=== PATIENT | male | born 1945 | race Caucasian/White ===

== ENCOUNTER 2019-01-21 13:43 | Inpatient (IN) | payer OTHER, MEDICARE ==
[2019-01-21] MEDS ORDERED: ACETAMINOPHEN 1000 MG/100 ML VIAL (NON FORMULARY) IVPB ONE (14:59)
[2019-01-21] MEDS ORDERED: SODIUM CHLORIDE 0.9% 1000 ML INFUS.BAG IV ONE (15:00)
--- NOTE | 2019-01-21 15:09 | PDOC ---
History of Present Illness - General Chief Complaint: Urinary Problem Stated Complaint: BACK PAIN Time Seen by Provider: 01/21/19 14:32 History Source: Patient Exam Limitations: No Limitations - History of Present Illness Initial Comments: 01/21/19 15:03 73M with a PMH of recent greenlight surgery on 01/17/19, HTN, DM, HLD, who presents to the ER with nausea and L flank pain. The patient states that since yesterday, he has had worsening nausea associated with the antibiotic that he was prescribed (Bactrim DS). He has not been able to hold any food down today but denies any current nausea. He states that he has been "dribbling" since his procedure. He denies fever, chills, dysuria, hematuria but admits to lower abdominal pain and abdominal distension. Last bowel movement was 2 days ago. No hx of abdominal surgery. Past History - Past Medical History Allergies/Adverse Reactions: Allergies Allergy/AdvReac Type Severity Reaction Status Date / Time Penicillins Allergy Verified 01/21/19 13:55 Home Medications: Ambulatory Orders Amlodipine Besylate 2.5 mg PO DAILY 01/21/19 Aspirin 81 mg PO DAILY 01/21/19 Lisinopril/Hydrochlorothiazide [Lisinopril-Hctz 20-12.5 mg Tab] 1 each PO DAILY 01/21/19 Metformin HCl [Glucophage] 500 mg PO BID 01/21/19 Phenazopyridine HCl [Pyridium] 100 mg PO DAILY 01/21/19 Rosuvastatin [Crestor -] 5 mg PO HS 01/21/19 Sulfamethoxazole/Trimethoprim [Bactrim Ds -] 1 tab PO BID 01/21/19 COPD: No Diabetes: Yes HTN: Yes Hypercholesterolemia: Yes - Suicide/Smoking/Psychosocial Hx Smoking History: Former smoker Have you smoked in the past 12 months: No Information on smoking cessation initiated: No Hx Alcohol Use: No Drug/Substance Use Hx: No Review of Systems - Review of Systems Able to Perform ROS?: Yes Comments:: 01/21/19 15:05 GENERAL/CONSTITUTIONAL: No fever or chills. No weakness. HEAD, EYES, EARS, NOSE AND THROAT: No change in vision. No ear pain or discharge. No sore throat. CARDIOVASCULAR: No chest pain, palpitations, or lightheadedness. RESPIRATORY: No cough, wheezing, shortness of breath, or hemoptysis. GASTROINTESTINAL: + for abdominal pain and distention. No abdominal pain, nausea , vomiting, diarrhea, or constipation. GENITOURINARY: + for frequency and L CVA pain. No dysuria, hematuria, or change in urination. MUSCULOSKELETAL: No joint or muscle swelling or pain. No neck or back pain. SKIN: No rash or lesions. NEUROLOGIC: No headache, numbness, tingling, focal weakness, loss of consciousness, or change in strength/sensation. Is the patient limited Finnish proficient: No *Physical Exam - Vital Signs Last Vital Signs Temp Pulse Resp BP Pulse Ox 99.2 F 100 H 20 144/76 94 L 01/21/19 13:58 01/21/19 13:58 01/21/19 13:58 01/21/19 13:58 01/21/19 13:58 - Physical Exam Comments: 01/21/19 15:06 GENERAL: Well developed, well nourished. Awake and alert. No acute distress. HEENT: Normocephalic, atraumatic. Hearing grossly normal. Moist mucous membranes. PERRLA, EOMI. No conjunctival pallor. Sclera are non-icteric. NECK: Supple. Full ROM. No JVD. CARDIOVASCULAR: Regular rate and rhythm. No murmurs, rubs, or gallops. PULMONARY: No evidence of respiratory distress. Lungs clear to auscultation bilaterally. No wheezing, rales or rhonchi. ABDOMINAL: Soft. Nontender but distended. No rebound or guarding. GENITOURINARY: L CVA tenderness. MUSCULOSKELETAL: Normal range of motion at all joints. No bony deformities or tenderness. EXTREMITIES: No cyanosis. No clubbing. No edema. No calf tenderness or swelling. SKIN: Warm and dry. Normal capillary refill. No rashes. No jaundice. NEUROLOGICAL: Alert, awake, appropriate. Cranial nerves 2-12 intact. Normal speech. Gait is normal without ataxia. PSYCHIATRIC: Cooperative. Good eye contact. Appropriate mood and affect. ED Treatment Course - LABORATORY CBC & Chemistry Diagram: 01/21/19 15:22 01/21/19 15:22 - RADIOLOGY Radiology Studies Ordered: Category Date Time Status ABDOMEN & PELVIS CT W/O CONTR [CT] Stat CT Scan 01/21/19 14:59 Ordered Medical Decision Making - Medical Decision Making 01/21/19 15:10 73M with a recent greenlight procedure who presents with nausea and distention concerning for urinary retention vs UTI vs pyelo. Will obtain labs, US, and UA. Pending labs and imaging. Pt noted to be mildly tachycardic. Will treat pain and give fluids. Case d/w Dr. Spears who recommends a bladder US to evaluate for urinary retention. He also recommends switch abx to cefuroxime if the patient cannot tolerate bactrim. 01/21/19 15:36 UA shows trace LE with 1.2 bacteria, unclear if definite UTI, especially with a lack of dysuria. However, due to urgency and L flank pain, still concern for pyelo. 01/21/19 17:24 US shows L hydro with post void residual of 750 (prevoid 950). Dr. Adair aware and agrees with archibald placement. Will give ceftriaxone for abx coverage. Pt does not remember his allergic reaction to PCNs, will monitor closely. 01/21/19 18:20 I have endorsed the patient to Dr. Cabrera for admission. *DC/Admit/Observation/Transfer Diagnosis at time of Disposition: BARBIE (acute kidney injury) - Discharge Dispostion Condition at time of disposition: Guarded Decision to Admit order: Yes - Referrals Referrals: Juany Dietz MD [Primary Care Provider] - - Patient Instructions - Post Discharge Activity
[2019-01-21 15:10] LABS: EPI CELLS 0.9 /HPF (0-5/HPF); HYALINE CASTS 1 /lpf (0-8); URINE APPEARANCE CLEAR; URINE BACTERIA 1.2 /hpf (NEGATIVE); URINE BILIRUBIN NEGATIVE (NEGATIVE); URINE COLOR DK YELLOW; URINE GLUCOSE (UA) NEGATIVE (NEGATIVE); URINE KETONE NEGATIVE (NEGATIVE); URINE LEUK ESTERASE TRACE (NEGATIVE); URINE NITRITE NEGATIVE (NEGATIVE); URINE PROTEIN TRACE (NEGATIVE); URINE UROBILINOGEN 0.2 mg/dL (0.2-1.0); URINE WBC 5 /hpf (0-5)
[2019-01-21] MEDS ORDERED: ACETAMINOPHEN INJECTION 100 ML IVPB ONE (15:13)
[2019-01-21 15:46] LABS: URINE RBC 177.4 /hpf (0-4)
[2019-01-21 15:54] LABS: BASO % 0.3 % (0-2.0); EOS % 0.3 % (0-4.5); HEMATOCRIT 45.5 % (35.4-49); HEMOGLOBIN 15.4 GM/dL (11.7-16.9); LYMPH % 3.9 % (8-40); MCH 28.5 pg (25.7-33.7); MCHC 33.8 g/dl (32.0-35.9); MEAN CELL VOLUME 84.2 fl (80-96); MEAN PLT VOLUME 7.2 fl (7.5-11.1); MONO % 12.4 % (3.8-10.2); NEUT % 83.1 % (42.8-82.8); PLATELET COUNT 236 K/MM3 (134-434); RDW 13.5 % (11.9-15.9); WHITE BLOOD COUNT 13.2 K/mm3 (4.0-10.0)
[2019-01-21 16:25] LABS: ALBUMIN 3.7 g/dl (3.4-5.0); BILIRUBIN,TOTAL 0.6 mg/dL (0.2-1); BLOOD UREA NITROGEN 37.7 mg/dL (7-18); CALCIUM 9.6 mg/dL (8.5-10.1); CREATININE 3.2 mg/dL (0.55-1.3); POTASSIUM 4.3 mmol/L (3.5-5.1); TOT PROT 7.2 g/dl (6.4-8.2)
[2019-01-21 16:29] LABS: INR 1.11 (0.83-1.09); PROTHROMBIN TIME (PATIENT) 13.1 SEC (9.7-13.0)
[2019-01-21] MEDS ORDERED: CEFTRIAXONE 1,000 MG in DEXTROSE 5%-WATER - 50 ML IVPB ONE (17:24)
[2019-01-21] MEDS ORDERED: CEFTRIAXONE 1 GM/50 ML BAG ONE (17:56)
[2019-01-21] MEDS ORDERED: AZTREONAM 1 GM VIAL (RESTRICTED TO ID) IVPB ONE (18:11)
[2019-01-21] MEDS ORDERED: LIDOCAINE HCL 2% JELLY 10 ML CARTRIDGE ONE (18:14)
[2019-01-21] MEDS ORDERED: AZTREONAM 1 GM VIAL (RESTRICTED TO ID) ONE (18:29)
[2019-01-22 03:50] VITALS: BMI 27.1
[2019-01-22 08:31] LABS: HEMATOCRIT 38.2 % (35.4-49); HEMOGLOBIN 13.3 GM/dL (11.7-16.9); MCH 28.9 pg (25.7-33.7); MCHC 34.8 g/dl (32.0-35.9); MEAN CELL VOLUME 82.9 fl (80-96); MEAN PLT VOLUME 6.8 fl (7.5-11.1); PLATELET COUNT 200 K/MM3 (134-434); RBC 4.61 M/mm3 (4.00-5.60); RDW 13.4 % (11.9-15.9); WHITE BLOOD COUNT 9.8 K/mm3 (4.0-10.0)
[2019-01-22 09:02] LABS: ALBUMIN 2.9 g/dl (3.4-5.0); BILIRUBIN,TOTAL 0.6 mg/dL (0.2-1); BLOOD UREA NITROGEN 22.6 mg/dL (7-18); CALCIUM 8.9 mg/dL (8.5-10.1); CREATININE 1.5 mg/dL (0.55-1.3); POTASSIUM 3.9 mmol/L (3.5-5.1); TOT PROT 6.1 g/dl (6.4-8.2)
[2019-01-22] MEDS: ASPIRIN 81 MG CHEWABLE TABLETS PO SCH (10:08)
[2019-01-22] MEDS: amLODIPine BESYLATE 2.5 MG TABLET (FP) PO SCH (10:08)
[2019-01-22] MEDS: SODIUM CHLORIDE 1,000 ML IV SCH (10:08)
--- NOTE | 2019-01-22 10:35 | EKG ---
Test Reason : Blood Pressure : / mmHG Vent. Rate : 088 BPM Atrial Rate : 088 BPM P-R Int : 210 ms QRS Dur : 092 ms QT Int : 374 ms P-R-T Axes : 051 -14 039 degrees QTc Int : 452 ms SINUS RHYTHM WITH 1ST DEGREE A-V BLOCK INFERIOR INFARCT , AGE UNDETERMINED ANTERIOR INFARCT , AGE UNDETERMINED ABNORMAL ECG NO PREVIOUS ECGS AVAILABLE Confirmed by YINKA SMITH MD ([id number]) on 01/22/2019 10:35:17 AM Referred By: Confirmed By:YINKA SMITH MD
[2019-01-22] MEDS: INSULIN SLIDING SCALE (NOVOLOG) 1 VIAL SQ SCH ×3 (12:29→21:42)
[2019-01-22] MEDS ORDERED: DOCUSATE SODIUM 100 MG CAPSULE (FP) PO PRN (14:04)
[2019-01-22] MEDS ORDERED: ACETAMINOPHEN 325 MG TABLET (FP) PO PRN (14:04)
--- NOTE | 2019-01-22 14:04 | HP ---
Admitting History and Physical - Primary Care Physician PCP: Kasi Cabrera - Admission Chief Complaint: Vomiting, Difficulty urinating History of Present Illness: Pt with Hx/o BPH, s/p greelight prostate procedure on last Tuesday, developed heamturia and UR, had Chavez cath placed and removed before the weekend; he was started on Bactrim and Pyridium. Over the weekend pt developed nausea, vomiting , chills, difficulty with urination. Yesterday he came to ER, found to have UR, UTI; pt had Chavez placed and was started on IV abtx. History Source: Patient - Past Medical History Cardiovascular: Yes: HTN, Hyperlipdemia Endocrine: Yes: Diabetes Mellitus - Past Surgical History Additional Past Surgical History: right ankle Sx with hardware palcement - Smoking History Smoking history: Former smoker Have you smoked in the past 12 months: No - Alcohol/Substance Use Hx Alcohol Use: No Home Medications - Allergies Allergies/Adverse Reactions: Allergies Allergy/AdvReac Type Severity Reaction Status Date / Time Penicillins Allergy Verified 01/21/19 13:55 - Home Medications Home Medications: Ambulatory Orders Amlodipine Besylate 2.5 mg PO DAILY 01/21/19 Aspirin 81 mg PO DAILY 01/21/19 Lisinopril/Hydrochlorothiazide [Lisinopril-Hctz 20-12.5 mg Tab] 1 each PO DAILY 01/21/19 Metformin HCl [Glucophage] 500 mg PO ACBK 01/21/19 Phenazopyridine HCl [Pyridium] 100 mg PO TID 01/21/19 Rosuvastatin [Crestor -] 5 mg PO HS 01/21/19 Sulfamethoxazole/Trimethoprim [Bactrim Ds -] 1 tab PO BID 01/21/19 Ubidecarenone [Co Q-10] 100 mg PO DAILY 01/22/19 Review of Systems - Review of Systems Constitutional: denies: Chills, Fever Eyes: denies: Blurred Vision, Double Vision HENT: reports: Ear Discharge, Nasal Congestion. denies: Throat Pain Neck: denies: Pain on Movement, Stiffness Cardiovascular: denies: Chest Pain, Edema Respiratory: denies: Cough, SOB Gastrointestinal: reports: Bloating, Constipation (for 4 days) Genitourinary: denies: Burning, Dysuria Musculoskeletal: denies: Back Pain, Muscle Pain Integumentary: denies: Bruising, Eczema Neurological: denies: Change in LOC, Change in Speech, Numbness Endocrine: denies: Excessive Sweating, Intolerance to Cold Hematology/Lymphatic: denies: Easily Bruised, Excessive Bleeding Psychiatric: denies: Anxiety, Depression Physical Examination Vital Signs: Vital Signs Temperature 98.4 F 01/22/19 06:00 Pulse Rate 87 01/22/19 06:00 Respiratory Rate 20 01/22/19 06:00 Blood Pressure 136/63 01/22/19 06:00 O2 Sat by Pulse Oximetry (%) 98 01/21/19 20:04 Constitutional: Yes: No Distress, Calm Eyes: Yes: Conjunctiva Clear, EOM Intact HENT: No: Epistaxis, Rhinnorhea Neck: Yes: Trachea Midline. No: Lymphadenopathy Cardiovascular: Yes: Regular Rate and Rhythm, S1, S2 Respiratory: Yes: Regular, CTA Bilaterally. No: Rales Gastrointestinal: Yes: Normal Bowel Sounds, Soft, Distention. No: Palpable Mass , Tenderness, Tenderness, Rebound ...Rectal Exam: Yes: Deferred Edema: No Neurological: Yes: Alert, Oriented Psychiatric: Yes: Alert, Oriented Labs: CBC, BMP 01/22/19 08:12 01/22/19 08:12 Imaging - Results Ultrasound: Report Reviewed Problem List - Problems (1) Urinary retention Code(s): R33.9 - RETENTION OF URINE, UNSPECIFIED (2) BPH (benign prostatic hyperplasia) Code(s): N40.0 - BENIGN PROSTATIC HYPERPLASIA WITHOUT LOWER URINRY TRACT SYMP (3) Constipation Assessment/Plan: Trial of Prune Juice, Colace and Senna; consider enema Code(s): K59.00 - CONSTIPATION, UNSPECIFIED (4) Diabetes mellitus Code(s): E11.9 - TYPE 2 DIABETES MELLITUS WITHOUT COMPLICATIONS (5) HTN (hypertension) Code(s): I10 - ESSENTIAL (PRIMARY) HYPERTENSION (6) HLD (hyperlipidemia) Code(s): E78.5 - HYPERLIPIDEMIA, UNSPECIFIED (7) BARBIE (acute kidney injury) Code(s): N17.9 - ACUTE KIDNEY FAILURE, UNSPECIFIED Assessment/Plan Chavez catheter IFV consult; pt's conditon was d/w Dr. Barbour ID consult in a pt with PCN allergy AM labs Pt's condition was d/w his nurse
--- NOTE | 2019-01-22 15:57 | CON.GU ---
Consult Consult Specialty:: Referred by:: ti Reason for Consultation:: urinary retention - History of Present Illness Chief Complaint: urinary retention History of Present Illness: 73 year old male 5 days S/P Greenlight laser. He was admitted to the hospital with urinary retention and increased creatinine. Archibald was placed. both have resolved. - History Source History Provided By: Patient, Medical Record - Past Medical History Renal/: Yes: BPH - Alcohol/Substance Use Hx Alcohol Use: No - Smoking History Smoking history: Former smoker Have you smoked in the past 12 months: No Home Medications - Allergies Allergies/Adverse Reactions: Allergies Allergy/AdvReac Type Severity Reaction Status Date / Time Penicillins Allergy Verified 01/21/19 13:55 - Home Medications Home Medications: Ambulatory Orders Amlodipine Besylate 2.5 mg PO DAILY 01/21/19 Aspirin 81 mg PO DAILY 01/21/19 Lisinopril/Hydrochlorothiazide [Lisinopril-Hctz 20-12.5 mg Tab] 1 each PO DAILY 01/21/19 Metformin HCl [Glucophage] 500 mg PO ACBK 01/21/19 Phenazopyridine HCl [Pyridium] 100 mg PO TID 01/21/19 Rosuvastatin [Crestor -] 5 mg PO HS 01/21/19 Sulfamethoxazole/Trimethoprim [Bactrim Ds -] 1 tab PO BID 01/21/19 Ubidecarenone [Co Q-10] 100 mg PO DAILY 01/22/19 Review of Systems - Review of Systems Gastrointestinal: reports: Bloating, Constipation Genitourinary: reports: Hematuria Physical Exam- Vital Signs: Vital Signs Temperature 98.4 F 01/22/19 06:00 Pulse Rate 87 01/22/19 06:00 Respiratory Rate 20 01/22/19 06:00 Blood Pressure 136/63 01/22/19 06:00 O2 Sat by Pulse Oximetry (%) 98 01/21/19 20:04 Gastrointestinal: Yes: Distention Renal/: Yes: Archibald Present. No: Bladder Distention, CVA Tenderness - Left, CVA Tenderness - Right, Hematuria Labs: CBC, BMP 01/22/19 08:12 01/22/19 08:12 Problem List - Problems (1) Urinary retention due to benign prostatic hyperplasia Assessment/Plan: creatinine and wbc are improved, ok to discharge on abx and with archibald/ follow up with Dr. Son this week Code(s): N40.1 - BENIGN PROSTATIC HYPERPLASIA WITH LOWER URINARY TRACT SYMP; R33.8 - OTHER RETENTION OF URINE
--- NOTE | 2019-01-22 16:29 | CON.ID ---
Consult Consult Specialty:: infectious disease Referred by:: dr luke Reason for Consultation:: possible uti - History of Present Illness Chief Complaint: urine dribbling History of Present Illness: 73 yo man s/p MRI fusion Biopsy 2 1/2 weeks ago was given bactrim to take for four days without incident , then underwent greenlight surgery last Tuesday- post surgery he had clotting and returned on to have archibald changed, he then went back tuesday and had the archibald removed he was given bactrim and pyridium to take - which he took until the day of admission- nausea and vomiting no fevers +abdominal distention no BM for 2 days in the ED archibald was placed for PVR of 750 cc renal/bladder sono with bilateral hydronephrosis with urinary retention he was noted to have elevated bun/cr he has voided over 4 liters now that he has a archibald no vomiting today ate 2 meals unknown penicillin allergy - History Source History Provided By: Patient, Family Member Limitations to Obtaining History: No Limitations - Past Medical History Cardio/Vascular: Yes: HTN, Hyperlipdemia Renal/: Yes: BPH 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) Endocrine: Yes: Diabetes Mellitus - Alcohol/Substance Use Hx Alcohol Use: No History of Substance Use: reports: None - Smoking History Smoking history: Former smoker Have you smoked in the past 12 months: No - Social History ADL: Independent Occupation: retired Place of : [facility] History of Recent Travel: No Home Medications - Allergies Allergies/Adverse Reactions: Allergies Allergy/AdvReac Type Severity Reaction Status Date / Time Penicillins Allergy Verified 01/21/19 13:55 - Home Medications Home Medications: Ambulatory Orders Amlodipine Besylate 2.5 mg PO DAILY 01/21/19 Aspirin 81 mg PO DAILY 01/21/19 Lisinopril/Hydrochlorothiazide [Lisinopril-Hctz 20-12.5 mg Tab] 1 each PO DAILY 01/21/19 Metformin HCl [Glucophage] 500 mg PO ACBK 01/21/19 Phenazopyridine HCl [Pyridium] 100 mg PO TID 01/21/19 Rosuvastatin [Crestor -] 5 mg PO HS 01/21/19 Sulfamethoxazole/Trimethoprim [Bactrim Ds -] 1 tab PO BID 01/21/19 Ubidecarenone [Co Q-10] 100 mg PO DAILY 01/22/19 Review of Systems - Review of Systems Constitutional: reports: No Symptoms Eyes: reports: No Symptoms HENT: reports: No Symptoms Neck: reports: No Symptoms Cardiovascular: reports: No Symptoms Respiratory: reports: No Symptoms. denies: Cough Gastrointestinal: reports: Bloating, Constipation. denies: Vomiting Genitourinary: reports: No Symptoms Physical Exam Vital Signs: Vital Signs Temperature 98.4 F 01/22/19 06:00 Pulse Rate 87 01/22/19 06:00 Respiratory Rate 20 01/22/19 06:00 Blood Pressure 136/63 01/22/19 06:00 O2 Sat by Pulse Oximetry (%) 98 01/21/19 20:04 Constitutional: Yes: Well Nourished, No Distress, Calm Eyes: Yes: Conjunctiva Clear HENT: Yes: Atraumatic, Normocephalic Neck: Yes: Supple Cardiovascular: Yes: Regular Rate and Rhythm Respiratory: Yes: Regular, CTA Bilaterally Gastrointestinal: Yes: Normal Bowel Sounds, Soft, Abdomen, Obese, Other ( distended, soft) ...Rectal Exam: Yes: Deferred Renal/: Yes: Archibald Present (clear urine) Extremities: Yes: WNL Edema: No Psychiatric: Yes: Alert, Oriented Labs: CBC, BMP 01/22/19 08:12 01/22/19 08:12 Microbiology 01/21/19 14:48 Urine - Urine Clean Catch Urine Culture - Final NO GROWTH OBTAINED Imaging - Results Ultrasound: Report Reviewed (bilateral hydronephrosis with urinary retention) Problem List - Problems (1) Urinary retention due to benign prostatic hyperplasia Code(s): N40.1 - BENIGN PROSTATIC HYPERPLASIA WITH LOWER URINARY TRACT SYMP; R33.8 - OTHER RETENTION OF URINE (2) BARBIE (acute kidney injury) Code(s): N17.9 - ACUTE KIDNEY FAILURE, UNSPECIFIED (3) Abdominal distention Code(s): R14.0 - ABDOMINAL DISTENSION (GASEOUS) (4) Penicillin allergy Code(s): Z88.0 - ALLERGY STATUS TO PENICILLIN Assessment/Plan urine culture is negative he has no fever will d/c antibioitcs xray abdomen for distention-most likely due to constipation pen allergy- noted-unspecified by patient d/w urology Dr Easley
[2019-01-22] MEDS ORDERED: MAG HYDROX/AL HYDROX/SIMETH 30 ML UNIT-DOSE CUP PO PRN (20:37)
[2019-01-22] MEDS: ROSUVASTATIN CA 5 MG TABLET (FP) PO SCH (21:42)
[2019-01-22] MEDS ORDERED: SENNOSIDES 8.6MG TABLET (FP) PO PRN (22:00)
[2019-01-22] MEDS ORDERED: SODIUM PHOSPHATE/NA BIPHOS 133 ML ENEMA RC ONE (22:15)
[2019-01-23] MEDS: INSULIN SLIDING SCALE (NOVOLOG) 1 VIAL SQ SCH ×4 (06:23→22:47)
[2019-01-23 08:28] LABS: HEMATOCRIT 39.7 % (35.4-49); HEMOGLOBIN 13.4 GM/dL (11.7-16.9); MCH 28.4 pg (25.7-33.7); MCHC 33.7 g/dl (32.0-35.9); MEAN CELL VOLUME 84.4 fl (80-96); MEAN PLT VOLUME 6.7 fl (7.5-11.1); RDW 13.1 % (11.9-15.9); WHITE BLOOD COUNT 8.5 K/mm3 (4.0-10.0)
[2019-01-23 08:43] LABS: ALBUMIN 2.9 g/dl (3.4-5.0); BILIRUBIN,TOTAL 0.6 mg/dL (0.2-1); BLOOD UREA NITROGEN 17.7 mg/dL (7-18); CALCIUM 8.8 mg/dL (8.5-10.1); CREATININE 1.1 mg/dL (0.55-1.3); POTASSIUM 3.7 mmol/L (3.5-5.1); TOT PROT 6.2 g/dl (6.4-8.2)
[2019-01-23 09:02] LABS: PLATELET COUNT 231 K/MM3 (134-434)
--- NOTE | 2019-01-23 09:28 | PN ---
Progress Note, Physician History of Present Illness: Pt had small BM last might (after Colace, Senna, fleet enema). Pt's abdomen feels better but still distended when is compare to baseline; pt w/ o nausea, vomiting. Pt w/o fever, chills, CP, palpitations, legs edema. Pt w/o Hx/o abdominal Sx, abdominal foreign body, abdominal stent - Current Medication List Current Medications: Active Medications Acetaminophen (Tylenol -) 650 mg PO Q6H PRN PRN Reason: PAIN 1-3 Last Admin: 01/22/19 17:47 Dose: 650 mg Al Hydroxide/Mg Hydroxide (Mylanta Oral Suspension -) 30 ml PO Q6H PRN PRN Reason: INDIGESTION Last Admin: 01/22/19 20:47 Dose: 30 ml Amlodipine Besylate (Norvasc -) 2.5 mg PO DAILY [facility] Last Admin: 01/22/19 10:08 Dose: 2.5 mg Aspirin (Asa -) 81 mg PO DAILY [facility] Last Admin: 01/22/19 10:08 Dose: Not Given Docusate Sodium (Colace -) 100 mg PO BID PRN PRN Reason: CONSTIPATION Last Admin: 01/22/19 17:47 Dose: 100 mg Sodium Chloride (Normal Saline -) 1,000 mls @ 75 mls/hr IV ASDIR [facility] Last Admin: 01/22/19 10:08 Dose: 75 mls/hr Insulin Aspart (Novolog Vial Sliding Scale -) 1 vial SQ ACHS [facility]; Protocol Last Admin: 01/23/19 06:23 Dose: Not Given Rosuvastatin Calcium (Crestor -) 5 mg PO HS [facility] Last Admin: 01/22/19 21:42 Dose: 5 mg Senna (Senna -) 2 tab PO HS PRN PRN Reason: CONSTIPATION Last Admin: 01/22/19 23:58 Dose: 2 tab - Objective Vital Signs: Vital Signs Temperature 99.1 F 01/23/19 06:30 Pulse Rate 90 01/23/19 06:30 Respiratory Rate 20 01/23/19 06:30 Blood Pressure 137/82 01/23/19 06:30 O2 Sat by Pulse Oximetry (%) 93 L 01/22/19 09:00 Constitutional: Yes: No Distress, Calm Cardiovascular: Yes: Regular Rate and Rhythm, S1, S2 Respiratory: Yes: Regular, CTA Bilaterally. No: Rales Gastrointestinal: Yes: Normal Bowel Sounds, Soft, Distention. No: Tenderness, Tenderness, Rebound Edema: No Neurological: Yes: Alert, Oriented Labs: CBC, BMP 01/23/19 07:21 01/23/19 07:21 INR, PTT INR 1.11 (0.83-1.09) H 01/21/19 15:22 - ....Imaging X-ray: Report Reviewed Problem List - Problems (1) Urinary retention Code(s): R33.9 - RETENTION OF URINE, UNSPECIFIED (2) BPH (benign prostatic hyperplasia) Code(s): N40.0 - BENIGN PROSTATIC HYPERPLASIA WITHOUT LOWER URINRY TRACT SYMP (3) Constipation Code(s): K59.00 - CONSTIPATION, UNSPECIFIED (4) Diabetes mellitus Code(s): E11.9 - TYPE 2 DIABETES MELLITUS WITHOUT COMPLICATIONS (5) HTN (hypertension) Code(s): I10 - ESSENTIAL (PRIMARY) HYPERTENSION (6) HLD (hyperlipidemia) Code(s): E78.5 - HYPERLIPIDEMIA, UNSPECIFIED (7) BARBIE (acute kidney injury) Code(s): N17.9 - ACUTE KIDNEY FAILURE, UNSPECIFIED Assessment/Plan Chavez catheter IFV consult and ID consult are appreciated. To f/u with ID and AM labs Pt's condition was d/w his nurse
[2019-01-23] MEDS: amLODIPine BESYLATE 2.5 MG TABLET (FP) PO SCH (11:06)
[2019-01-23] MEDS: ASPIRIN 81 MG CHEWABLE TABLETS PO SCH (11:07)
[2019-01-23] MEDS: SODIUM CHLORIDE 1,000 ML IV SCH (11:07)
[2019-01-23] MEDS: ROSUVASTATIN CA 5 MG TABLET (FP) PO SCH (22:48)
[2019-01-24] MEDS ORDERED: SODIUM CHLORIDE 1,000 ML IV SCH (00:40)
[2019-01-24] MEDS: INSULIN SLIDING SCALE (NOVOLOG) 1 VIAL SQ SCH ×4 (06:39→21:47)
[2019-01-24 08:26] LABS: HEMATOCRIT 37.5 % (35.4-49); HEMOGLOBIN 12.8 GM/dL (11.7-16.9); MCH 28.7 pg (25.7-33.7); MEAN CELL VOLUME 84.2 fl (80-96); MEAN PLT VOLUME 6.6 fl (7.5-11.1); PLATELET COUNT 258 K/MM3 (134-434); RBC 4.45 M/mm3 (4.00-5.60); WHITE BLOOD COUNT 8.5 K/mm3 (4.0-10.0)
[2019-01-24 08:45] LABS: BLOOD UREA NITROGEN 14.9 mg/dL (7-18); CALCIUM 8.3 mg/dL (8.5-10.1); CREATININE 0.9 mg/dL (0.55-1.3)
[2019-01-24] MEDS: ASPIRIN 81 MG CHEWABLE TABLETS PO SCH (10:12)
[2019-01-24] MEDS: amLODIPine BESYLATE 2.5 MG TABLET (FP) PO SCH (10:12)
[2019-01-24] MEDS: DOCUSATE SODIUM 100 MG CAPSULE (FP) PO SCH ×2 (10:12→21:48)
--- NOTE | 2019-01-24 14:04 | PN ---
Progress Note, Physician History of Present Illness: Pt is asking to have Chavez removed, refusing to go home if not seen by . Pt's abdomen feels better but still distended when is compare to baseline; pt w/ o nausea, vomiting; hre had BM yestarday. Pt w/o fever, chills, CP, palpitations, legs edema. Pt w/o Hx/o abdominal Sx, abdominal foreign body, abdominal stent - Current Medication List Current Medications: Active Medications Acetaminophen (Tylenol -) 650 mg PO Q6H PRN PRN Reason: PAIN 1-3 Last Admin: 01/22/19 17:47 Dose: 650 mg Al Hydroxide/Mg Hydroxide (Mylanta Oral Suspension -) 30 ml PO Q6H PRN PRN Reason: INDIGESTION Last Admin: 01/22/19 20:47 Dose: 30 ml Amlodipine Besylate (Norvasc -) 2.5 mg PO DAILY [facility] Last Admin: 01/24/19 10:12 Dose: 2.5 mg Aspirin (Asa -) 81 mg PO DAILY [facility] Last Admin: 01/24/19 10:12 Dose: 81 mg Docusate Sodium (Colace -) 100 mg PO BID [facility] Last Admin: 01/24/19 10:12 Dose: 100 mg Insulin Aspart (Novolog Vial Sliding Scale -) 1 vial SQ [facility]; Protocol Last Admin: 01/24/19 12:08 Dose: Not Given Rosuvastatin Calcium (Crestor -) 5 mg PO HS [facility] Last Admin: 01/23/19 22:48 Dose: 5 mg Senna (Senna -) 2 tab PO HS PRN PRN Reason: CONSTIPATION Last Admin: 01/22/19 23:58 Dose: 2 tab - Objective Vital Signs: Vital Signs Temperature 98.2 F 01/24/19 10:00 Pulse Rate 94 H 01/24/19 10:00 Respiratory Rate 18 01/24/19 10:00 Blood Pressure 158/71 01/24/19 10:00 O2 Sat by Pulse Oximetry (%) 99 01/23/19 21:00 Constitutional: Yes: No Distress, Calm Cardiovascular: Yes: Regular Rate and Rhythm, S1, S2 Respiratory: Yes: Regular, CTA Bilaterally. No: Rales Gastrointestinal: Yes: Normal Bowel Sounds, Soft. No: Tenderness Edema: No Neurological: Yes: Alert, Oriented Labs: CBC, BMP 01/24/19 07:05 01/24/19 07:05 INR, PTT INR 1.11 (0.83-1.09) H 01/21/19 15:22 Problem List - Problems (1) Urinary retention Code(s): R33.9 - RETENTION OF URINE, UNSPECIFIED (2) BPH (benign prostatic hyperplasia) Code(s): N40.0 - BENIGN PROSTATIC HYPERPLASIA WITHOUT LOWER URINRY TRACT SYMP (3) Constipation Code(s): K59.00 - CONSTIPATION, UNSPECIFIED (4) Diabetes mellitus Code(s): E11.9 - TYPE 2 DIABETES MELLITUS WITHOUT COMPLICATIONS (5) HTN (hypertension) Code(s): I10 - ESSENTIAL (PRIMARY) HYPERTENSION (6) HLD (hyperlipidemia) Code(s): E78.5 - HYPERLIPIDEMIA, UNSPECIFIED (7) BARBIE (acute kidney injury) Code(s): N17.9 - ACUTE KIDNEY FAILURE, UNSPECIFIED Assessment/Plan Chavez catheter To DC IFV consult and ID consult are appreciated. To f/u with DC planning. Pt's condition was d/w his nurse
--- NOTE | 2019-01-24 17:12 | PN ---
Progres Note Chief Complaint: urinary retention - Objective Vital Signs: Vital Signs Temperature 99.1 F 01/24/19 15:00 Pulse Rate 81 01/24/19 15:00 Respiratory Rate 18 01/24/19 15:00 Blood Pressure 149/75 01/24/19 15:00 O2 Sat by Pulse Oximetry (%) 99 01/23/19 21:00 Constitutional: Yes: Well Nourished Eyes: Yes: WNL HENT: Yes: WNL Neck: Yes: WNL Respiratory: Yes: Dullness Gastrointestinal: Yes: Soft Genitourinary: Yes: WNL Kidneys: Yes: WNL Labs/Additional Data: CBC, BMP 01/24/19 07:05 01/24/19 07:05 INR, PTT INR 1.11 (0.83-1.09) H 01/21/19 15:22 Imaging - Results Ultrasound: Report Reviewed Problem List - Problems (1) BPH (benign prostatic hyperplasia) Assessment/Plan: archibald to sd s/p AUR post BPH procedure for voiding trial in am Code(s): N40.0 - BENIGN PROSTATIC HYPERPLASIA WITHOUT LOWER URINRY TRACT SYMP
[2019-01-24] MEDS ORDERED: SODIUM PHOSPHATE/NA BIPHOS 133 ML ENEMA RC ONE (21:30)
[2019-01-24] MEDS: ROSUVASTATIN CA 5 MG TABLET (FP) PO SCH (21:48)
[2019-01-25 04:42] VITALS: PULSE 80
[2019-01-25 07:34] LABS: BLOOD UREA NITROGEN 13.1 mg/dL (7-18); CALCIUM 8.3 mg/dL (8.5-10.1); POTASSIUM 3.8 mmol/L (3.5-5.1)
[2019-01-25] MEDS: INSULIN SLIDING SCALE (NOVOLOG) 1 VIAL SQ SCH (07:58)
[2019-01-25] MEDS: ASPIRIN 81 MG CHEWABLE TABLETS PO SCH (10:05)
[2019-01-25] MEDS: DOCUSATE SODIUM 100 MG CAPSULE (FP) PO SCH (10:06)
[2019-01-25] MEDS: amLODIPine BESYLATE 2.5 MG TABLET (FP) PO SCH (10:06)
--- NOTE | 2019-01-25 11:00 | DS ---
Physical Examination Vital Signs: Vital Signs Temperature 99.8 F H 01/24/19 22:00 Pulse Rate 80 01/24/19 22:00 Respiratory Rate 18 01/24/19 22:00 Blood Pressure 142/68 01/24/19 22:00 O2 Sat by Pulse Oximetry (%) 99 01/23/19 21:00 Findings/Remarks: Pt had Chavez removed this AM; he voided twice, no blood in urine. Pt w/o abd distension, had BM twice yesterday. Pt w/o abd pain, back opain, SOB, cg, SOB Constitutional: Yes: No Distress, Calm Cardiovascular: Yes: Regular Rate and Rhythm, S1, S2 Respiratory: Yes: Regular, CTA Bilaterally. No: Rales Gastrointestinal: Yes: Normal Bowel Sounds, Soft. No: Tenderness Edema: No Neurological: Yes: Alert, Oriented Labs: CBC, BMP 01/24/19 07:05 01/25/19 05:20 Discharge Summary Reason For Visit: ACUTE KIDNEY INJURY Current Active Problems BARBIE (acute kidney injury) (Acute) Abdominal distention (Acute) BPH (benign prostatic hyperplasia) (Acute) Constipation (Acute) Diabetes mellitus (Acute) HLD (hyperlipidemia) (Acute) HTN (hypertension) (Acute) Penicillin allergy (Acute) Urinary retention (Acute) Urinary retention due to benign prostatic hyperplasia (Acute) Procedures: Principal: Renal/ Bladder US. Abd XR Hospital Course: Pt with recent greenlight prostate procedure, for BPH, came to ER c/o difficulty with urination, found to have UR, ARF. Pt had Chavez placed and was started on IVabtx, IVF. He was seen by (Dr Corea/ Adelaida), ID (Dr Mc; no abtx needed). Pt's reanl function improved; he was treated for constiparion. Pt had Chavez removed (this AM) and voided. To DC pt home with outpatient f/u. Condition: Guarded - Instructions Diet, Activity, Other Instructions: Resume ADA, low salt, low fat/ cholesterol diet Referrals: Juany Dietz MD [Primary Care Provider] - (within a week) Gabriel Son MD., [Staff Physician] - (as scheduled) Disposition: HOME - Home Medications Comprehensive Discharge Medication List: Ambulatory Orders See Patient discharge instructions
[2019-01-25 11:13] VITALS: BP 165/94; TEMP 99.5
== END 2019-01-25 13:36 | disposition home or self-care (01) | DRG 699 ==
LOC: JER 13:43 → JERBED 17:42 → J8W 22:50
PROVIDERS: ADMIT Specialist; ATTEND Specialist
DX: N99.89 Other postprocedural complications and disorders of genitourinary system (principal); N17.9 Acute kidney failure, unspecified; N13.30 Unspecified hydronephrosis; E11.9 Type 2 diabetes mellitus without complications; I10 Essential (primary) hypertension; E78.5 Hyperlipidemia, unspecified; R14.0 Abdominal distension (gaseous); K59.00 Constipation, unspecified; N40.1 Benign prostatic hyperplasia with lower urinary tract symptoms; R33.8 Other retention of urine; Y83.8 Other surgical procedures as the cause of abnormal reaction of the patient, or of later complication, without mention of misadventure at the time of the procedure; Z88.0 Allergy status to penicillin
CPT/HCPCS: 36415; 74018-TC-FY; 74019-TC-FY; 76775-TC; 76856-TC; 80048; 80053; 81003; 82962; 85025; 85027; 85610; 87086; 93005; 93010; 99285-25; J0131; J7030